=== PATIENT | female | born 1960 | race African-American/Black ===

== ENCOUNTER 2023-12-05 12:51 | Emergency (ER) | payer OTHER ==
[~2023-12-05] VITALS: Ht 170.2 cm; Wt 104.5 kg
[~2023-12-05 12:51] MED LIST: ALBU2.5V IH; GABA-1181 PO; HYDR25TA2 PO; LISI5TAB21 PO; PHEN100C10 PO
[2023-12-05 13:10] VITALS: BP 174/83; PULSE 86; RESP 18; TEMP 97.8
[2023-12-05] MEDS ORDERED: NIFE-78 PO (14:28)
[2023-12-05] MEDS ORDERED: ASCO500T20 PO (14:28)
[2023-12-05] MEDS ORDERED: LISI40TA9 PO (14:28)
[2023-12-05] MEDS ORDERED: METF-1211 PO (14:28)
[2023-12-05] MEDS ORDERED: SEMA1.7P SQ (14:28)
[2023-12-05] MEDS: LIDOCAINE 5% TRANSDERMAL PATCH TD ONE (16:00)
[2023-12-05] MEDS: HYDROCODONE/ACETAMINOPHEN 5-325 MG TABLET PO ONE (16:01)
[2023-12-05] MEDS: KETOROLAC TROMETHAMINE 60 MG/2 ML VIAL IM ONE (16:01)
[2023-12-05] MEDS ORDERED: IBUP-1554 PO (16:11)
[2023-12-05] MEDS ORDERED: METH-812 PO (16:11)
[2023-12-05] MEDS ORDERED: HYDR-4723 PO (16:11)
== END 2023-12-05 16:20 | disposition home or self-care (01) ==
LOC: EMS 12:51
DX: S40.012A Contusion of left shoulder, initial encounter (principal); I10 Essential (primary) hypertension; J45.909 Unspecified asthma, uncomplicated; R56.9 Unspecified convulsions; D64.9 Anemia, unspecified; F17.210 Nicotine dependence, cigarettes, uncomplicated; Z90.49 Acquired absence of other specified parts of digestive tract; Z88.0 Allergy status to penicillin; Z98.890 Other specified postprocedural states; X58.XXXA Exposure to other specified factors, initial encounter; Y93.89 Activity, other specified; Y92.89 Other specified places as the place of occurrence of the external cause; Y99.8 Other external cause status
CPT/HCPCS: 99283; 73030; 96372; J1885